=== PATIENT | male | born 1945 | race Caucasian/White ===

== ENCOUNTER 2017-08-21 02:24 | Inpatient (IN) | payer MEDICARE, OTHER ==
[~2017-08-21] VITALS: Ht 188 cm; Wt 103.4 kg
[2017-08-21] VITALS (15 sets, daily range): BP systolic 113–173; BP diastolic 71–102
[~2017-08-21 02:24] MED LIST: HYDR-2966 PO; LEVO50TA86 PO; METO-233 PO
[2017-08-21] MEDS ORDERED: NORMOSOL R SOLN(*) 1000 ML BAG 1,000 ML IV PRN (08:45)
[2017-08-21] MEDS ORDERED: FAMOTIDINE 20 MG TAB PO ONE (08:45)
[2017-08-21] MEDS ORDERED: LIDOCAINE/SOD BICARB 8.4% SYR ID ONE (08:45)
[2017-08-21] MEDS ORDERED: BACITRACIN 50000 UNIT/VIAL 100,000 UNIT in NS 0.9% 3000 ML IRRIGATION BAG 3,000 ML IR ONE (08:45)
[2017-08-21] MEDS ORDERED: MIDAZOLAM 2 MG/2 ML VIAL IVP ONE (08:45)
[2017-08-21] MEDS ORDERED: ceFAZolin(*) 2GM/D5W 50ML 50 ML IVPB ONE (08:45)
[2017-08-21] MEDS ORDERED: PROPOFOL EMUL(*) 10MG/ML 20 ML 20 ML ONE (09:32)
[2017-08-21] MEDS ORDERED: DEXAMETHASONE SOD 4 MG/ML VIAL ONE (09:32)
[2017-08-21] MEDS ORDERED: SUGAMMADEX SOD 200 MG/2 ML SDV ONE (09:32)
[2017-08-21] MEDS ORDERED: LIDOCAINE MPF 1% 5 ML VIAL ONE (09:32)
[2017-08-21] MEDS ORDERED: ONDANSETRON 4 MG/2 ML VIAL ONE (09:32)
[2017-08-21] MEDS ORDERED: ROCURONIUM BROM 10 MG/ML 10 ML ONE (09:32)
[2017-08-21] MEDS ORDERED: fentaNYL CITR 250 MCG/5 ML AMP ONE (09:32)
[2017-08-21 10:08] LABS: INR 0.96
[2017-08-21] MEDS ORDERED: ROPIVACAINE 0.2% 20 ML VIAL ONE (11:06)
[2017-08-21] MEDS ORDERED: GLYCOPYRROLATE 0.2 MG/ML SDV ONE (13:00)
[2017-08-21] MEDS ORDERED: KETAMINE HCL 200 MG/20 ML MDV ONE (13:00)
[2017-08-21] MEDS ORDERED: fentaNYL CITR 100 MCG/2 ML AMP ONE ×3 (13:53→14:53)
[2017-08-21] MEDS ORDERED: HYDROmorphone HCL 2 MG/ML SDV ONE ×2 (13:58→14:41)
[2017-08-21] MEDS ORDERED: FLUSH 10 ML SYR IVP PRN (14:40)
[2017-08-21] MEDS ORDERED: BISACODYL 10 MG SUPP PR PRN (14:40)
[2017-08-21] MEDS ORDERED: HYDROmorphone HCL 2 MG/ML SDV IVP PRN (14:40)
[2017-08-21] MEDS ORDERED: diphenhydrAMINE 50 MG/ML VIAL IVP PRN (14:40)
[2017-08-21] MEDS ORDERED: diphenhydrAMINE 25 MG CAP PO PRN (14:40)
[2017-08-21] MEDS ORDERED: LR 1000 ML BAG 1000 ML IV PRN (14:40)
[2017-08-21] MEDS ORDERED: MAGNESIUM HYDROXIDE* 30ML UDCP PO PRN (14:40)
[2017-08-21] MEDS ORDERED: ZOLPIDEM TARTRATE 5 MG TAB PO PRN (14:40)
[2017-08-21] MEDS ORDERED: PROMETHAZINE HCL(*) 25 MG SUPP PR PRN (14:40)
[2017-08-21] MEDS ORDERED: MAGNESIUM CITRATE 300 ML BTL PO PRN (14:40)
[2017-08-21] MEDS ORDERED: ONDANSETRON 4 MG/2 ML VIAL IVP PRN (14:40)
--- NOTE | 2017-08-21 16:36 | Hospitalist Consultation ---
History of Present Illness Requesting Physician Dr. Sanford Reason for Consult Hypertension History of Present Illness This patient was admitted for shoulder surgery. It is reported that the surgery went well and was without complication. History Problems: (1) Essential hypertension (2) Hypothyroid Home Meds Reported Medications Hydrochlorothiazide (HYDROCHLOROTHIAZIDE) 25 Mg Tablet, 1 TAB PO QDAY, TAB 08/13/17 Metoprolol Succinate (TOPROL XL) 50 Mg Tab.er.24h, 1 TAB PO QDAY, TAB 08/13/17 Levothyroxine Sodium (LEVOTHYROXINE SODIUM) 50 Mcg Tablet, 50 MCG PO QDAY, TAB 08/13/17 Allergies: Coded Allergies: No Known Drug Allergies (Unverified , 08/13/17) Patient History: Patient reports no known family medical history. Hx Smoking: No Caffeine Intake: Coffee, Tea, Soda Caffeine/Cups Per Day: 2 CUPS A DAY Hx Alcohol Use: Yes Alcohol Used: Liquor Hx Substance Use Disorder: No Review of Systems All Systems Reviewed/Normal: Yes Exam Vital Signs Vital Signs Date Time Temp Pulse Resp B/P (MAP) Pulse Ox O2 Delivery O2 Flow Rate FiO2 08/21/17 16:01 97 Nasal Cannula 2.0 08/21/17 15:50 71 18 167/102 (123) 08/21/17 09:20 97.1 Cardiovascular: Regular Rate and Rhythm Respiratory: Clear to Auscultation Assessment and Plan Problems: (1) Essential hypertension Assessment & Plan: He is on chronic treatment with metoprolol, which has been ordered with hold parameters. (2) Hypothyroid Assessment & Plan: He is on chronic treatment with Synthroid. Venous Thromboembolism Antithrombotics Is Pt On Any Antithrombotics?: No INGRID DIAS DO Aug 21, 2017 16:36
--- NOTE | 2017-08-21 16:44 | RADIOLOGY IMAGING REPORT ---
FACILITY: [facility] [place] PATIENT NAME: Missael Richey : 1945 MR: [id number] V: [id number] EXAM DATE: ORDERING PHYSICIAN: KEITH MICHAUD TECHNOLOGIST: Location: [facility] Patient: Missael Richey : 1945 Visit/Account:[id number] Date of Sevice: 08/21/2017 Exam type: SHOULDER 1 VIEW LEFT History: POST OP L. TSA Comparison: None. Findings: There is a left shoulder arthroplasty that appears in good anatomic alignment on this single AP view. Metallic screw projects over the lateral aspect of the proximal left humeral neck IMPRESSION: 1. As above Report Dictated By: Yoon Hatfield MD at 08/21/2017 4:40 PM Report E-Signed By: Yoon Hatfield MD at 08/21/2017 4:41 PM WSN:[id number]
[2017-08-21] MEDS: ceFAZolin(*) 2GM/D5W 50ML 50 ML IVPB SCH (20:43)
[2017-08-22] MEDS: ceFAZolin(*) 2GM/D5W 50ML 50 ML IVPB SCH (03:34)
[2017-08-22 03:39] VITALS: BP 145/87
[2017-08-22] MEDS ORDERED: LEVOTHYROXINE SOD 0.05 MG TAB PO SCH (06:00)
[2017-08-22] MEDS ORDERED: OXYC-865 PO (07:52)
[2017-08-22 08:50] VITALS: BP 142/82
[2017-08-22] MEDS ORDERED: METOPROLOL SUCC XL 50 MG TABCR 50 MG TAB.ER.24H PO SCH (09:00)
--- NOTE | 2017-08-22 09:17 | Hospitalist Progress Note ---
Subjective Progress Notes Subjective No cp/sob. No concerns from patient or staff. Physical Exam Vital Signs Date Time Temp Pulse Resp B/P (MAP) Pulse Ox O2 Delivery O2 Flow Rate FiO2 08/22/17 08:53 92 Room Air 08/22/17 08:50 98.0 85 20 142/82 (102) 08/21/17 19:05 2.5 Intake and Output 08/23/17 07:00 Intake Total 420 ml Balance 420 ml Intake Oral 420 ml General Appearance: Alert, Awake, No Acute Distress Result Diagram: 08/22/17 0527 Assessment and Plan Problems: (1) Status post total shoulder arthroplasty Status: Acute Assessment & Plan: No CV/pulmonary issues. Will defer to Dr. Mcacll for DVT prophylaxis. (2) Essential hypertension Assessment & Plan: He is on chronic treatment with metoprolol, which he can resume as an outpatient. (3) Hypothyroid Assessment & Plan: He is on chronic treatment with Synthroid. Exam Sepsis Risk: No Definite Risk Problem Qualifiers (1) Status post total shoulder arthroplasty: Laterality: left Qualified Codes: Z96.612 - Presence of left artificial shoulder joint CORINA HINES MD Aug 22, 2017 09:17
--- NOTE | 2017-08-22 09:22 | OPERATIVE REPORT 1 ---
EVENT DATE: August 21, 2017 SURGEON: Gamal Mccall MD ANESTHESIOLOGIST: Vik Morillo MD ANESTHESIA: General LMA. EQUIPMENT WASHER: ODESSA Chase, SEAM STAYER PREOPERATIVE DIAGNOSIS Left shoulder osteoarthritis. POSTOPERATIVE DIAGNOSIS Left shoulder osteoarthritis. PROCEDURE PERFORMED Left total shoulder arthroplasty. FINDINGS The patient had a significant amount of arthritic changes associated with the shoulder and a loose fragment which needed to be removed but was amenable for a total shoulder arthroplasty. ESTIMATED BLOOD LOSS About 150 mL. DRAINS None. COMPLICATIONS None. TOURNIQUET TIME Not applicable. IMPLANTS [employer] Unite system with a size 10 stem and body, a 48 x 15 standard head and a 48 anchor peg glenoid. SPECIMENS None. INDICATIONS AND HISTORY This patient is a 72-year-old male who presented to my clinic for evaluation of left shoulder pain and irritation going on for some time. He continued to have pain and irrigation despite conservative management and was found to have a significant amount of arthritic changes associated with the shoulder, so we talked to him about the implications of this as well as treatment options. He wanted to go ahead with a total shoulder arthroplasty today, August 21, 2017, and the risks and benefits were discussed with the patient and informed consent was obtained prior to the procedure. He understood that it may not give him complete relief, and he may need revision at some point. DESCRIPTION OF PROCEDURE The patient was brought into the operating room. He and the procedure were both verified. He was placed supine on the operative table and induced and intubated by Anesthesia. The left upper extremity was then prepped and draped in the usual fashion, and a time out was observed, verifying the correct patient and procedure. After injecting the skin with 2% lidocaine with epinephrine, I then did a standard deltopectoral approach through the skin and subcutaneous tissue. Once I was able to go through this area, I was then able to go down and find the cephalic vein between the deltoid and the pec muscle itself, and then retract that to the lateral side and then go down to the clavipectoral fascia. Once I cleaned off the clavipectoral fascia, I was able to identify the biceps and performed a biceps tenodesis in this area in order to tie this out of the way. I then was able to release the subscap using a peel technique using the Bovie itself in order to peel back the subscap and tagged it for later repair, and then was able to access the shoulder. Once I was able to access the shoulder, I was then able to dislocate it using an external rotation in an extended position. This was then followed by a dexter in the superior aspect to cut through the top of the head, and then I broached with the regular reamers down into the canal, until we got to about a 10, which had a good fit, and so therefore this was what was chosen. I then used the Sourcery system guide to cut the proximal aspect of the head without any difficulty, and then removed it and put it on the back table. I then turned attention to the glenoid, where I was able to expose the glenoid with posterior and superior retractors. There was a lot of labral fraying and tearing associated with the capsule and the labrum associated with this, but I was able to get good glenoid exposure eventually. There were some loose fragments in this area with two loose bodies in the glenohumeral joint area, and once I removed these there was better movement associated with the arm itself. I then pin drilled the central tugboat pilot hole for the glenoid itself. I then reamed to a 48 mm reamer, as that was the best fit for the round backs, and so therefore I then put in the anchor peg holes and drilled those without any major difficulty. Once I was able to do this, I was then able to cement in a 48 anchor peg glenoid without any difficulty after using the CarboJet to clear out the bone itself and then suctioned, and then using standard press thumb press technique and putting bone in the anchor peg, I was able to hold the glenoid in place until the cement hardened. I then turned attention back to the humerus, where I was able to use the 10 Brosteotome in order to get down into the canal. This was then followed by bone grafting and then putting in the trial stem followed by a 48 x 18 head. Once the 48 x 18 head was in good position, I was able to move it in all directions. It had good tension associated with it and excellent movement in all directions, and so therefore this was the final component chosen. The final component was then placed. After placing 6 drill holes in the lesser tuberosity and passing the sutures through this area, I then subsequently repaired the subscap on this area after testing the prosthesis out itself, and then irrigating with copious amounts of saline, which I had using pulsatile lavage throughout the case. I then was able to close the deltopectoral interval using a #2 Stratafix. This was then followed by 2-0 Stratafix in the subcutaneous tissue and a subcuticular 4-0 running Monocryl with the ends buried , and the patient was then dressed with Steri-Strips, anesthetized with ropivacaine and then dressed with gauze 4x4's, soft dressing and then regular sling. The patient was awakened and extubated and transferred to PACU in stable condition. HUNTER
== END 2017-08-22 11:48 | disposition home or self-care (01) | DRG 483 ==
LOC: OR 02:24 → MED 15:45
PROVIDERS: ADMIT Orthopaedic Surgery; ATTEND Orthopaedic Surgery
PROC: 0RRK0JZ Replacement of Left Shoulder Joint with Synthetic Substitute, Open Approach (ICD-10-PCS; principal; 2017-08-21 11:15)
DX: M19.012 Primary osteoarthritis, left shoulder (principal); I10 Essential (primary) hypertension; Z96.643 Presence of artificial hip joint, bilateral; Z96.652 Presence of left artificial knee joint; E03.9 Hypothyroidism, unspecified
CPT/HCPCS: 36415; 85014; 85018; 85610; 86850; 86900; 86901; 97165; A4565; C1713; C1776; J0690; J1100; J1170; J2001; J2250; J2405; J2704; J2795; J3010; J3490